=== PATIENT | female | born 1990 | race Two or more races ===

== ENCOUNTER → 2025-01-06 | Outpatient (CLI) | payer MEDICAID, SELFPAY ==
[2025-01-05 14:54] LABS: HCG Qualitative,Urine Negative
--- NOTE | 2025-01-06 12:00 | XR_ITS ---
Examination: CT pelvis without intravenous contrast. 2-D sagittal and coronal reconstructions. Date and time of exam:January 06, 2025, 1219 hours INDICATIONS: Left pelvic pain beginning 2019, history left ovarian cystic disease. CTDI: vol (mGy) :11.1 DLP: (mGycm) : 340 Technique: Multiple 3 mm axial sections of the pelvis have been obtained with the 64 slice high resolution scanner. 2-D sagittal and coronal reconstructions. Low dose protocols were performed. One or more of the following dose reduction techniques were used; automated exposure control, adjustment of the mA and/or KV according to patient size, use of iterative reconstruction technique. Findings: Normal appendix. No bowel obstruction No diverticulitis Anteverted uterus with no uterine mass Prominent right adnexal region 39 mm Urinary bladder intact Moderate disc narrowing L5-S1 Sclerosis involving the right superior pubic ramus IMPRESSION: Recommend pelvic sonography to assess prominent right adnexal region Sclerosis involving the right superior pubic ramus, clinical correlation advised Recommend plain film AP pelvis follow-up
== END | disposition home or self-care (01) ==
LOC: CCTX 11:45
PROVIDERS: Referring Provider Physician Assistant Medical; Visit Provider Physician Assistant Medical
DX: M89.8X8 Other specified disorders of bone, other site (principal); Z87.42 Personal history of other diseases of the female genital tract; Z98.890 Other specified postprocedural states; Z32.00 Encounter for pregnancy test, result unknown
CPT/HCPCS: 72192; 81025